=== PATIENT | female | born 1955 | race Hispanic/Latino ===

== ENCOUNTER 2020-07-06 19:53 | Emergency (ER) | payer BC ==
--- OUTSIDE RECORDS SUMMARY | 2020-07-06 19:59 | XMS REPORT | Continuity of Care Document ---
:1955 Author Organization [facility] [place] [facility] [employer] Care Team Providers Name Role Phone [facility] [employer] Unavailable Un available Problems Problem Status Onset Classification Date Comments Sourc e Date Reported BONE MARROW Active [facility] 9 [place] Pain in 01/18/2018 [facility] K aty right 8 shoulder M25.511 - Active [facility] Ka ty PAIN IN 8 RIGHT SHOULDER M19.90 - Active [facility] "UNSPECIFIED 5 Pérez OSTEOARTHRIT IS, UN Bursitis of 01/18/2018 [facility] Charlene right shoulder Medications Medication Details Route Status Patient Ordering Order Source Instructions Provider Date 8 HR Acetaminophen 1,300 mg = Active MH 650 MG Extended 2 tab, PO, 019 [place] and Release Tablet Q8H, 0 [Tylenol] Refill(s) calcium-vitamin D See Active 150 mg-100 units Instructio 019 [place] oral tablet ns, Take (1) tab by tucker daily, 0 Refill(s) clobetasol topical 1 appl, Active [facility] 0.05% cream TOP, BID, 019 [place] 0 Refill(s) Estrogens, 1 gm = 1 Active [facility] Conjugated ([facility]) appl, VAG, 019 [place] 0.625 MG/ML Bedtime, # Vaginal Cream 42.5 gm, 0 Refill(s) cyclobenzaprine 10 10 mg = 1 Active MH mg oral tablet tab, PO, 019 [place] Bedtime, PRN for spasms, # 30 tab, 0 Refill(s) Fish Oil oral = 1 cap, Active MH capsule PO, Q6H, # 019 [place] 100 cap, 0 Refill(s) Flax Seed Oil oral 1 tab, PO, Active MH capsule BID, 0 019 [place] Refill(s) Folic Acid 1 MG 1 mg = 1 Active MH Oral Tablet tab, PO, 019 [place] Daily, # 30 tab, 0 Refill(s) meloxicam 15 mg 15 mg = 1 Active oral tablet tab, PO, 019 [place] Daily, # 30 tab, 0 Refill(s) potassium 595 mg = 1 Active gluconate 595 mg tab, PO, 019 [place] oral tablet Daily, 0 Refill(s) pravastatin 40 mg 40 mg = 1 Active oral tablet tab, PO, 019 [place] Bedtime, # 30 tab, 0 Refill(s) prednisolone 5 MG 5 mg = 1 Active Oral Tablet tab, PO, 019 [place] Daily, 0 Refill(s) Allergies, Adverse Reactions, Alerts Substance Category Reaction Severity Reaction Status Date Comments S ource type Reported No Known Assertion Drug MH Medication allergy Mindy and Allergies Immunizations No Data Provided for This Section Results Order Name Results Value Reference Date Interpretation Comments Brittaney rce [facility] HEMATOLOGY WBC 2.8 3.7 - 10.4 2018 [place] HEMATOLOGY RBC 4.47 4.20 - 5.40 2018 [place] HEMATOLOGY Hgb 13.6 12.0 - 16.0 2018 [place] HEMATOLOGY Hct 40.0 36.0 - 48.0 2018 [place] HEMATOLOGY MCV 89.4 80.0 - 98.0 2018 [place] HEMATOLOGY MCH 30.5 27.0 - 31.0 2018 [place] HEMATOLOGY MCHC 34.1 32.0 - 36.0 2018 [place] HEMATOLOGY RDW 13.5 11.5 - 14.5 2018 [place] HEMATOLOGY Platelet 96 133 - 450 2018 [place] HEMATOLOGY MPV 11.4 7.4 - 10.4 2018 [place] HEMATOLOGY Neutrophils # 0.6 1.5 - 8.1 2018 [place] HEMATOLOGY Lymphocytes # 2.1 1.0 - 5.5 2018 [place] HEMATOLOGY Monocytes # 0.1 0.0 - 0.8 2018 [place] HEMATOLOGY Eosinophils # 0.0 0.0 - 0.5 2018 [place] HEMATOLOGY Segs 19.0 45.0 - 75.0 2018 [place] HEMATOLOGY Bands 1.0 0.0 - 11.0 2018 [place] HEMATOLOGY Lymphocytes 68.0 20.0 - 40.0 2018 [place] HEMATOLOGY Monocytes 3.0 2.0 - 12.0 2018 [place] HEMATOLOGY Eosinophils 1.0 0.0 - 4.0 2018 [place] HEMATOLOGY Atypical 8.0 <=0.0 % Lymphs 2018 [place] HEMATOLOGY RBC Morph Normal Normal (06/07/19 10:16 AM) 2018 [facility] HEMATOLOGY Tot Cell Ct 100 2018 [place] HEMATOLOGY Large Plt Slight 2018 [place] HEMATOLOGY Retic Auto 2.0 0.5 - 1.5 2018 [place] Pathology Reports No Data Provided for This Section Diagnostic Reports Report Value Date Source Bone Marrow Biopsy or PROCEDURE [facility]: [facility]: IR Diagnostic bone biopsies and aspiration s Exam date and time: 06/07/2019 10:44 AM Clinical history: 64 years old, female; Decrease d white blood cell count, unspecified; Additional info: /thrombocytopenia TECHNIQUE: Imaging protocol: Diagnostic bone biopsies and a spirations. The interpreting physician was present and supervised the procedu re. CT guidance was provided. CTDI volume: 23.11mGy DLP: 337.98 mGy-cm COMPARISON: No relevant prior studies available. FINDINGS: Consent: The procedure, risks, benefits and alternatives of the procedure were discussed. Informed consent was obtained. Timeou t was performed prior to the procedure. Level of Sedation: I supervised moderate sedatio n during this procedure. ?The patient was monitored by nurse using automated b lood pressure, EKG and pulse oximetry. ?The moderate sedation record is perma nently stored in the hospital information system. ?The personal supervised mod erate sedation time was 10 minutes. Medications administered:?2 mg of IV Ve rsed and 100 micrograms of IV Fentanyl. Sedation time: The personal supervised moderate sedation time was 10 minutes. Procedure summary: The patient was placed in the prone position . 1% lidocaine was used for local anesthesia. Using CT guidance, 11-gauge ne edle was advanced into the posterior left iliac bone. CT imaging confirmed proper positioning of the needle with the tip in the medullary bone. Appro ximately 1 cc of bone marrow was initially aspirated and given to pathology. The presence of spicules was confirmed. 9.0 cc of bone marrow was aspirated a nd given to pathology. 2.5 cm long core biopsy sample of b one marrow was obtained utilizing the guide needle. The core biopsy sample was placed in formalin co ntainer and appeared grossly adequate. Pressure was applied at the puncture s ite with adequate hemostasis. No evident complications and the patient had no complaints. CT imaging performed at this location utilizes r adiation dose optimization techniques which include one or more of the foll owing: -Automated exposure control. -Adjustment of the mA and/or kV according to pat ient size. -Use of iterative reconstruction technique. CT Radiation Dose DLP 337.98 mGy-cm IMPRESSION: Technically successful CT guided bone ma rrow biopsy. Final pathology report is pending. Du Serrano MD On 06/07/2019 11:22:39; VR-P [id number] Shoulder wo contrast Patient Name: GARTH GALINDO. 10/12/2017 [facility] MRI : 1955; Age: 62 years y/o; Female. MR: [id number]. Ordering Physician: Erick Palomo MD. MR RIGHT SHOULDER WITHOUT CONTRAST. INDICATION: Right shoulder pain. COMPARISON: None. TECHNIQUE: Multiplanar, mult isequence MR imaging of the right shoulder was performed using routine protocol without gadolinium contrast. FINDINGS: . Acromioclavicular joint: M oderate hypertrophic degenerative change of acromioclavicular joint noted. No subacromial spurring. . Rotator cuff: Varying degr ees of mild to moderate thickening and increased intrasubstance signal of subscapularis, infraspinatus and supraspinatus tendons noted compatible with tendinopathy with small partial-thickness undersurf cherelle to intrasubstance tear at the distal infraspinatus tendon at its footprint/greater tuberosity insertion. Teres minor tendon is normal in signal and morphology. No large partial full-thickness rotator cuff tear. . Biceps and Labrum: Long he ad of biceps tendon in anatomic position with an intact anchor. Labrum is intact. . Glenohumeral joint: No alexis nt effusion or loose bodies. Visualized glenohumeral ligaments intact. . Bones: No dislocation, sub luxation, fracture, or osteonecrosis. Marrow signal appropriate for age. . Other: Trace volume reactive subacromial/subde ltoid bursitis. IMPRESSION: 1. Subscapularis, infraspina tus and supraspinatus tendinopathy with small partial-thickness undersurface to intrasubstance tear at the distal infraspinatus tendon at its footprint/greater tuberosity ins ertion. No large partial full-thickness rotator cuff tear. 2. Trace volume reactive subacromial/subdeltoid bursitis. 3. Moderate hypertrophic degenerative change of AC joint. SL: [id number] Hand 3 views EXAM: XR BILATERAL HAND 4 VIEWS 05/25/2015 [facility] P[facility]rez Bilateral DX DATE: 2015-05-25 12:05:28 INDICATION: M19.90 Unspecified osteoarthritis, unspecified site COMPARISON: Bilateral hands 3 views 03/30/2012 at 1355 hours TECHNIQUE: PA, lateral, [place] and oblique ra diographs of both hands FINDINGS: No fracture, dislo cation or other acute bony abnormality is identified. No joint space narrowing, osteophyte, or erosions are seen. However, a left subarticular radial cyst and 2 small cysts i n the left capitate are seen , new since the 2011 study. Soft tissue swelling is seen over the metacarpophalangeal joints , left greater than right IMPRESSION: 1. Development of nonspecifi c subarticular cyst of the distal radius and 2 cysts in the left capitate. 2. Soft tissue swelling at the bilateral metacar pophalangeal joints. Consultation Notes No Data Provided for This Section Discharge Summaries No Data Provided for This Section History and Physicals No Data Provided for This Section Vital Signs Vital Sign Value Date Comments Source Height 166.37 cm 06/07/2019 [facility] Weight 83.182 06/07/2019 [facility] BMI Calculated 30.05 06/07/2019 [facility] Encounters Location Location Encounter Encounter Reason Attending ADM MD Stat Source Details Type Number For Provider Date Date Visit [facility] Outpt Diag [id number] Robert 05/25 05/26 [facility] [place] [facility]2014 Reji Ortez [facility] Outpt Diag [id number] Erick 10/12 10/13 [facility] [place] [facility]2017 [facility] [id number] Desi 06/07 06/08 [facility] Ortez [place] /2018 [facility] Procedures No Data Provided for This Section Assessment and Plan No Data Provided for This Section Plan of Care No Data Provided for This Section Social History Social History Date Source Social History TypeResponse 06/07/2019 [facility] Smoking Status Never smoker; Exposure to Tobacco Smoke None; Cigarette Smoking Last 365 Days No; Reg Smoking Cessation Counseling No entered on: 06/07/19 No data available for this 10/13/2017 [facility] section No data available for this 05/26/2015 [facility] Saab nn section Family History No Data Provided for This Section Advance Directives No Data Provided for This Section Functional Status No Data Provided for This Section
--- OUTSIDE RECORDS SUMMARY | 2020-07-06 20:00 | XMS REPORT | Continuity of Care Document ---
:1955 Author Organization [facility] t Address [address] [place] [address] Care Team Providers Name Role Phone Wse Florence MD Attending Clinician Doctor Unassigned, Name Attending Clinician Unavailable Phyllis Gallo Attending Clinician CATHY Attending Clinician Unavailable MARY Attending Clinician Unavailable KRISTI Attending Clinician Unavailable Eleonora Palomo Attending Clinician Teresita Spicer Attending Clinician Phyllis Gallo Admitting Clinician Problems Condition Condition Condition Status Onset Resolution Last Treating Co mments Source Name Details Category Date Date Treatment Clinician Date BONE Diagnosis Active 2018-072019-06-07 Mem oria MARROW 1-06 09:45:00 l BONE 00:00: [place] MARROW 00 Active 06/01/2019 [facility] M25.511 - Diagnosis Active 2017-10-15 Memoria PAIN IN -08 15:22:00 l RIGHT M25.511 00:01: Pérez SHOULDER - PAIN IN 00 RIGHT SHOULDER Active 10/01/2017 OPID Charlene M19.90 - Diagnosis Active 2014-072015-05-25 M emoria "UNSPECIFI 0-30 11:50:00 l ED M19.90 - 00:01: Brandon n OSTEOARTHR "UNSPECIFI 00 ITIS, UN ED OSTEOARTHR ITIS, UN Active 05/25/2015 MH PETER Ortez History of History of Problem Resolve Univers diabetes diabetes HL7.CCDAR2 d it y of mellitus mellitus [place] Physici ans History of History of Problem Resolve Univers Osteonecro Osteonecro HL7.CCDAR2 d [place] sis [place] Swelling Swelling Problem Active Unive rs of joint of joint HL7.CCDAR2 it y of of hand of hand [place] [facility] ans Chronic Chronic Problem Active Univers inflammato inflammato HL7.CCDAR2 ity of ry ry [place] arthritis arthritis Phys ici ans Encounter Encounter Problem Active Uni vers for for HL7.CCDAR2 it[place] of methotrexa [place]ot[place]xa [place] monitoring monitoring an s Vitamin D Vitamin D Problem Active Uni vers insufficie insufficie HL7.CCDAR2 ity of ncy ncy [place] [facility]ici ans Pain of Pain of Problem Active Univers right right HL7.CCDAR2 ity of shoulder shoulder [place] region region Physici ans Adhesive Adhesive Problem Active Unive rs capsulitis capsulitis HL7.CCDAR2 ity of of right of right [place] shoulder shoulder Physic i ans Sinusitis, Sinusitis, Problem Active U nivers acute acute HL7.CCDAR2 ity of [place] Physici ans History of History of Problem Active U nivers osteopenia osteopenia HL7.CCDAR2 ity of [place] Physici ans Incomplete Incomplete Problem Active U nivers rupture of rupture of HL7.CCDAR2 ity of right right [place] rotator rotator Physici cuff cuff ans Neutropeni Neutropeni Problem Active U nivers a a HL7.CCDAR2 ity of [place] Physici ans Bursitis Problem 2018-01-18 Mem oria of right 12:20:56 l shoulder Bursitis Herm stefan of right shoulder 01/18/2018 OPIAdriana Charlene Pain in Problem 2018-0 2018-01-18 2018-01-18 Memoria right 10-16 12:20:56 12:20:56 l shoulder Pain in 04:40: Katiana nn right 19 shoulder 8 01/18/2018 PETER Chang Allergies, Adverse Reactions, Alerts Allergy Allergy Status Severity Reaction(s) Onset Inactive Treating Comm ents Source Name Type Date Date Clinician No Known No Known Active Memori a Medicati Medicati l on on Pérez salgado s Social History Social Habit Start Date Stop Date Quantity Comments Source Social History 2015-05-26 2015-05-26 Francine mclean 04:59:00 04:59:00 Smoking Status Start Date Stop Date Source Social History [facility] Medications Ordered Filled Start Stop Current Ordering Indication Dosage Frequency Signature Comments Components Source Medication Medication Date Date Medication? Clinician (SIG) Name Name 8 HR 2018-07 Yes 1,300 mg = Memoria Acetaminoph 12 2 tab, PO, l en 650 MG 16:12: Q8H, 0 Brandon n Extended 00 Refill(s) Release Tablet [Tylenol] calcium-vit 2018-07 Yes See Memori a leon D 150 12 Instructio l mg-100 16:12: ns, Take Pérez units oral 00 (1) tab by tablet nouth daily, 0 Refill(s) clobetasol 2018-07 Yes 1 appl, Bill enedina topical 12 TOP, BID, l 0.05% cream 16:12: 0 Brandon n 00 Refill(s) Estrogens, 2018-07 Yes 1 gm = 1 Mem oria Conjugated 08-07 appl, VAG, l ([facility]) 0.625 16:12: Bedtime, # Pérez MG/ML 00 42.5 gm, 0 Vaginal Refill(s) Cream cyclobenzap 2018-07 Yes 10 mg = 1 M emoria rine 10 mg -12 tab, PO, l oral tablet 16:12: Bedtime, He rmann 00 PRN for spasms, # 30 tab, 0 Refill(s) Fish Oil 2018-07 Yes = 1 cap, Memor ia oral -12 PO, Q6H, # l capsule 16:12: 100 cap, 0 Herm stefan 00 Refill(s) Flax Seed 2018-07 Yes 1 tab, PO, Me moria Oil oral 1-12 BID, 0 l capsule 16:12: Refill(s) Katiana nn 00 Folic Acid 2018-07 Yes 1 mg = 1 Mem oria 1 MG Oral 1-12 tab, PO, l Tablet 16:12: Daily, # Pérez 00 30 tab, 0 Refill(s) meloxicam 2018-07 Yes 15 mg = 1 Mem oria 15 mg oral 1-12 tab, PO, l tablet 16:12: Daily, # Pérez 00 30 tab, 0 Refill(s) potassium 2018-07 Yes 595 mg = 1 Me moria gluconate -12 tab, PO, l 595 mg oral 16:12: Daily, 0 He rmann tablet 00 Refill(s) pravastatin 2018-07 Yes 40 mg = 1 M emoria 40 mg oral 1-12 tab, PO, l tablet 16:12: Bedtime, # Katiana nn 00 30 tab, 0 Refill(s) prednisolon 2018-07 Yes 5 mg = 1 Me moria e 5 MG Oral 1-12 tab, PO, l Tablet 16:12: Daily, 0 [place] 00 Refill(s) Cyclobenzap Cyclobenzap Yes LICO TAKE 1 Univers rine HCl - rine HCl - 9-12 CATHY TABLET AT ity of 10 MG Oral 10 MG Oral 14:19: M.D. BEDTIME [place] Tablet Tablet 17 Physici ans Azithromyci Azithromyci Yes LICO TAKE 2 Univers n 250 MG n 250 MG 1-02 CATHY TABLETS ON ity of Oral Tablet Oral Tablet 00:00: M.D. DAY 1 THEN TAKE 1 Physici TABLET A DAY FOR 4 DAYS. PredniSONE PredniSONE Yes LICO 1 QD TAKE 1 Univers 5 MG Oral 5 MG Oral 1-02 CATHY TABLET ity of Tablet Tablet 00:00: M.D. DAILY Physici ans Meloxicam Meloxicam 2011-07 Yes LICO 1 QD TAKE 1 Univers 15 MG Oral 15 MG Oral 2-07 CATHY TABLET ity of Tablet Tablet 00:00: M.D. DAILY Physici ans Methotrexat Methotrexat 2011-07 Yes LICO TAKE 8 Univers e 2.5 MG e 2.5 MG 0-26 CATHY TABLETS BY ity of Oral Tablet Oral Tablet 00:00: M.D. MOUTH PER WEEK Physici ans Folic Acid Folic Acid 2011-07 Yes LICO 1 QD TAKE 1 Univers 1 MG Oral 1 MG Oral 0-26 CATHY TABLET ity of Tablet Tablet 00:00: M.D. DAILY Physici ans MetFORMIN MetFORMIN Yes Q0.5D TAKE 1 Un justin HCl - 1000 HCl - 1000 TABLET i ty of MG Oral MG Oral TWICE [place] Tablet Tablet DAILY Physici ans Crestor 20 Crestor 20 Yes 1 QD TAKE 1 U nivers MG Oral MG Oral TABLET ity of Tablet Tablet DAILY. [place] [facility]ici ans Flax Oil Flax Oil Yes 2 QD TAKE 2 Unive rs Xtra CAPS Xtra CAPS CAPSULE it y of Daily [place] 1200mg Physici ans Escitalopra Escitalopra Yes QD TAKE 1/2 Univers m Oxalate m Oxalate TABLET ity of 20 MG Oral 20 MG Oral DAILY. [place] Tablet Tablet Physici ans Tanzeum 30 Tanzeum 30 Yes INJECT U nivers MG PEN MG PEN 30MG UNDER ity o f THE SKIN [place] ONCE A Physici WEEK. ans Potassium Potassium Yes 1 QD TAKE 1 Uni vers Gluconate Gluconate TABLET ity of TABS TABS DAILY [place] Physici ans Fish Oil Fish Oil Yes 2 QD TAKE 2 Unive rs CAPS CAPS CAPSULE ity of DAILY [place] Physici ans Calcium-Vit Calcium-Vit Yes 2 QD TAKE 2 Univers leon D3 leon D3 TABLET ity of TABS TABS DAILY [place] Physici ans Arthritis Arthritis Yes TAKE 1 Uni vers Pain Relief Pain Relief TABLET 3-4 ity of TBCR TBCR TIMES [place] DAILY. Physici ans Immunizations Ordered Filled Immunization Date Status Comments [facility] e Immunization Name Name Influenza 2015-05-25 Completed [facility] 10:57:00 [facility] [facility] ns Vital Signs Vital Name Observation Time Observation Value Comments Source Height 2019-06-[address] [facility] n 15:54:00 Weight 2019-06-07 [facility] n 15:54:00 BMI Calculated 2019-06-07 [facility] 15:54:00 BP Systolic 2018-06-22 111 mm[Hg] Location: [facility] 13:45:00 Position: [place] Physician s Sitting BP Diastolic 2018-06-22 72 mm[Hg] Location: [facility] 13:45:00 Position: [place] Physician s Sitting Height 2018-06-22 65 [in_us] [facility] 13:45:00 [place] Physician s Weight 2018-06-22 189.375 [lb_av] University o 13:45:00 [place] Physician s Body Mass Index 2018-06-22 31.51 kg/m2 [place] o Calculated 13:45:00 [place] Physician s Heart Rate 2018-06-22 69 /min [facility] 13:45:00 [place] Physician s BP Systolic 2018-03-23 118 mm[Hg] Location: [facility] 13:19:00 Position: [place] Physician s Sitting BP Diastolic 2018-03-23 73 mm[Hg] Location: [facility] 13:19:00 Position: [place] Physician s Sitting Weight 2018-03-23 188 [lb_av] [facility] 13:19:00 [place] Physician s Body Mass Index 2018-03-23 31.29 kg/m2 University o f Calculated 13:19:00 [place] Physician s Height 2018-03-23 65 [in_us] [facility] 13:19:00 [place] Physician s Heart Rate 2018-03-23 79 /min [facility] 13:19:00 [place] Physician s BP Systolic 2017-10-27 115 mm[Hg] Location: [facility] 10:36:00 Position: [place] Physician s Sitting BP Diastolic 2017-10-27 77 mm[Hg] Location: [facility] 10:36:00 Position: [place] Physician s Sitting Height 2017-10-27 65 [in_us] [facility] 10:36:00 [place] Physician s Weight 2017-10-27 180.125 [lb_av] University o 10:36:00 [place] Physician s Body Mass Index 2017-10-27 29.97 kg/m2 University o f Calculated 10:36:00 [place] Physician s Heart Rate 2017-10-27 69 /min [facility] 10:36:00 [place] Physician s BP Systolic 2017-07-28 126 mm[Hg] Location: [facility] 10:19:00 Position: [place] Physician s Sitting BP Diastolic 2017-07-28 74 mm[Hg] Location: [facility] 10:19:00 Position: [place] Physician s Sitting Height 2017-07-28 65 [in_us] [facility] 10:19:00 [place] Physician s Weight 2017-07-28 177 [lb_av] [facility] 10:19:00 [place] Physician s Body Mass Index 2017-07-28 29.45 kg/m2 University o Calculated 10:19:00 [place] Phys[facility] s Heart Rate 2017-07-28 74 /min [facility] 10:19:00 [place] Physician s Procedures Procedure Date / Time Performing Clinician Source Performed [QLH] CBC (INCLUDES 2018-01-28 00:00:00 [facility] DIFF/PLT) Physicians [QLH] CMP W/EGFR 2018-01-28 00:00:00 [facility] Physicians [QLH] SED RATE BY 2018-01-28 00:00:00 [facility] MODIFIED JULITA Physicians [QLH] C-REACTIVE PROTEIN 2018-01-28 00:00[facility]00 [facility] PATHOLOGIST REVIEW 2018-01-28 00:00:00 [facility] OF PERIPHERAL SMEAR Physicians [H] Immunofixation 2018-01-28 00:00[facility]00 [facility] [H] Immunofixation 2018-01-28 00:00:00 [facility] Eletrophoresis Urine Physicians [QLH] CBC (INCLUDES 2017-10-27 00:00:00 [facility] DIFF/PLT) Physicians [QLH] CMP W/EGFR 2017-10-27 00:00:00 [facility] Physicians [QLH] SED RATE BY 2017-10-27 00:00:00 [facility] MODIFIED WESTERGREN Physicians [QLH] C-REACTIVE PROTEIN 2017-10-27 00:00:00 [facility] Physicians [U] XRAY SHOULDER MIN 2 2017-08-10 00:00:00 [facility] VWS RIGHT [id number] Physicians [U] XRAY SCAPULA, 2017-08-10 00:00:00 [facility] COMPLETE RIGHT [id number] Physicians [QLH] CBC (INCLUDES 2017-07-28 00:00:00 [facility] DIFF/PLT) Physicians [QLH] CMP W/EGFR 2017-07-28 00:00:00 [facility] Physicians [QLH] SED RATE BY 2017-07-28 00:00:00 [facility] MODIFIED WESTERGREN Physicians [QLH] C-REACTIVE PROTEIN 2017-07-28 00:00:00 [facility] Physicians Encounters Start End Encounter Admission Attending Care Care Encounter Source Date/Time Date/Time Type Type Clinicians Facility Department ID 2020-06-04 2020-06-04 Telephone Sobia Florence [facility] [id number] 00:00:00 00:00:00 [place] [id number] [place] [id number] Professio [id number] [address] 2020-06-04 2020-06-04 Case Sobia Florence [facility] [id number] 00:00:00 00:00:00 Management Cam [place] [id number] [place] [id number] Professio [id number] [address] 2020-05-31 2020-05-31 Office Sobia Florence [facility] [id number] 14:57:12 15:49:19 Visit Wes Dominguez [id number] [place] [id number] [address]imirerum [id number] 2020-05-31 2020-05-31 Orders Doctor MIKE [id number] 00:00:00 00:00:00 Only Unassigned, JENI [id number] [place] [facility] [id number] 2019-06-07 2019-06-07 Outpatient Pant, MHPL MHPL [id number] 09:38:00 23:59:00 Desi 00 Phyllis 2019-06-07 2019-06-07 Outpatient MHBL MHBL [id number] MHBL 09:38:00 09:38:00 2018-06-22 2018-06-22 Appointjessica MORGAN [facility] [id number] Univers 13:30:00 13:30:00 t; Inés BARFIELD of [place], [place] Jus BARFIELD M.D. ans 2018-05-04 2018-05-04 [facility]essica [facility] [id number] Univers 09:00:00 09:00:00 t; Sherie BRADEN [place], [place] Yamilex BRADENAOsmar Physi ci ans 2018-04-06 2018-04-06 Appointjessica HERNANDEZ [facility] [id number] Univers 09:30:00 09:30:00 t; Sherie BRADEN [place], [place] SAMPSON P.AOsmar Physi ci ans 2018-03-23 2018-03-23 Appointjessica MORGAN [facility] [id number] Univers 13:00:00 13:00:00 t; Inés BARFIELD y of [place], [place] Jus BARFIELD M.D. ans 2018-03-09 2018-03-09 [address] [facility] UTP [id number] Univers 09:30:00 09:30:00 t; Sherie BRADEN [place], [place] SAMPSON PKelly Physi ci ans 2018-02-16 2018-02-16 Appointjessica LANREShayla [facility] [id number] Univers 09:15:00 09:15:00 t; Sherie BRADEN [place], [place] Sherie BRADEN Physi ci ans 2018-02-10 2018-02-10 Appointmen KRISTI [facility] [id number] Univers 10:00:00 10:00:00 t; ERICK PALOMO it y of Inés LAWSON M.D. Physici ans 2017-10-27 2017-10-27 [facility]ATH[facility] [id number] Univers 10:30:00 10:30:00 t; Inés BARFIELD of [place] MORGAN Physici M.D. ans 2017-10-27 2017-10-27 [facility] KRISTI [facility] [id number] Univers 08:50:00 08:50:00 t; ERICK PALOMO it y of [place]és [place] M.D. Physici ans 2017-10-12 2017-10-12 Outpatient YANN Palomo [id number] 18:15:00 23:59:00 Erick Crews 2017-10-01 2017-10-01 Appointjessica ALLYMARBELLA [facility] [id number] Univers 13:30:00 13:30:00 t; Sherie BRADEN [place], [place] Sherie BRADEN Physi ci ans 2017-09-09 2017-09-09 [facility] KRISTI [facility] [id number] Univers 15:00:00 15:00:00 t; ERICK PALOMO it y of [place] M.D. Physici ans 2017-08-10 2017-08-10 Appointjessica PALOMO [facility] [id number] Univers 13:30:00 13:30:00 t; ERICK PALOMO it y of Inés LAW[place] M.D. Physici ans 2017-07-28 2017-07-28 [facility] CATHY [facility] [id number] Univers 09:30:00 09:30:00 t; Inés BARFIELD it [place] Jus BARFIELD M.D. ans 2017-04-28 2017-04-28 [facility] CATHY, [facility] UTP [id number] Univers 09:30:00 09:30:00 t; Inés BARFIELD it y of [place], [place] Jus BARFIELD M.D. ans 2017-04-22 2017-04-22 [facility], [facility] UTP [id number] Univers 10:00:00 10:00:00 t; Inés BARFIELD it y of [place], [place] Jus BARFIELD M.D. ans 2017-01-22 2017-01-22 [facility], [facility] UTP [id number] Univers 11:00:00 11:00:00 t; Inés BARFIELD it y of [place], [place] Jus BARFIELD M.D. ans 2016-10-16 2016-10-16 [facility], [facility] UTP [id number] Univers 11:00:00 11:00:00 t; Inés BARFIELD it y of [place], [place] Jus BARFIELD M.D. ans 2016-09-30 2016-09-30 [facility], [facility] UTP [id number] Univers 13:30:00 13:30:00 t; Inés BARFIELD it y of CATHYYuliana PABLO Physici M.D. ans 2016-07-01 2016-07-01 [facility], [facility] UTP [id number] Univers 13:00:00 13:00:00 t; Inés BARFIELD it y of [place] Jus BARFIELD M.D. ans 2016-01-08 2016-01-08 [facility], [facility] UTP [id number] Univers 14:00:00 14:00:00 t; Inés BARFIELD it y of [place], [place] Jus BARFIELD M.D. ans 2015-09-25 2015[facility] [id number] Univers 14:00:00 14:00:00 t; Inés BARFIELD it y of [place], Jus Cassidy M.D. ans 2015-05-25 2015-05-25 Outpatient Nayan, [facility] [id number] 11:40:00 23:59:00 Robert Hines Results Test Description Test Time Test Comments Results Result Comments Source HEMATOLOGY 2019-06-07 2.8 [facility] Katiana nn 16:16:00 HEMATOLOGY 2019-06-07 4.47 [facility] [place] nn 16:16:00 HEMATOLOGY 2019-06-07 13.6 [facility] [place] nn 16:16:00 HEMATOLOGY 2019-06-07 40.0 [facility] [place] nn 16:16:00 HEMATOLOGY 2019-06-07 89.4 [facility] [place] nn 16:16:00 HEMATOLOGY 2019-06-07 16:16:00 Test Item Value Reference Range Interpretation Comme nts MCH (test code = MCH) 30.5 pg 27.0-31.0 Memorial [id number] 16:16:0034.1[facility] 2019-06-07 16:16:0013.5[facility] NrogaojGEMDCQVURG4294-88-91 16:16:0096[facility] VisyyesKUHCWZAVXB9762-53-23 16:16:0011.4[facility]orial XjqnvglFFAJSEIZNJ2691-34-16 16:16:000.6[facility] NygijmpBASPVXBWHL8995-54-77 16:16:002.1[facility] Pérez CLYTEFQSDB8853-91-10 16:16:000.1[facility]orial YwpqjrhLJNRSPAZSX4189-70-42 16:16:000.0 Memorial ZzxebyjVUUKCYEXKY1582-74-06 16:16:0019.0[facility]ann[facility]MATOLOGY 2019-06-07 16:16:001.0[facility] SgaatymFAKBHEHFTA6768-13-60 16:16:0068.0[facility]orial NrfviogFPGBGHTDKF3490-67-53 16:16:003.0[facility] SnmljoyMQGIRPBGTD7454-45-50 16:16:001.0[facility]orial GhwekwpJTFYZAAXIC1571-25-61 16:16:008.0[facility] [id number] 16:16:00Normal (06/07/19 10:16 AM)[facility] [place] [id number] 16:16:00 Test Item Value Reference Range Interpretation Comments Tot Cell Ct (test code = Tot Cell Ct) 100 1 [id number] 16:16:002.0[facility] [place][[facility]] Apsxbokmwsts3489-36-09 14:00:01 Test Item Value Reference Range Interpretation Comments Differential (test code Cancel Reason: Lab = Differential) Cancellation [facility]] CBC (INCLUDES DIFF/PLT)2018-03-23 14:00:01 Test Item Value Reference Range Interpretation Comments WBC; Below Low Threshold (test 2.7 {K/CMM} 3.7-10.4 code = 6690-2) RBC (test code = 789-8) 4.83 {M/CMM} 4.20-5.40 Hgb (test code = 718-7) 14.3 g/dl 12.0-16.0 Hct (test code = 72104-3) 43.2 % 36.0-48.0 MCV (test code = 787-2) 89.4 fL 80.0-98.0 MCH (test code = 785-6) 29.5 pg 27.0-31.0 MCHC (test code = 786-4) 33.0 g/dl 32.0-36.0 RDW (test code = 788-0) 14.0 % 11.5-14.5 Platelet; Below Low Threshold 124 {K/CMM} 133-450 (test code = 72466-9) Mean Platelet Volume; Above High 11.3 fL 7.4-10.4 Threshold (test code = 28476-5) [facility][] Manual [id number] 14:00:01 Test Item Value Reference Range Interpretation Comments Segmented Neutrophils (test code 54.0 % 45.0-75.0 = 01481-9) Bands (test code = 49336-0) 1.0 % 0.0-11.0 Lymphocytes (test code = 46317-3) 39.0 % 20.0-40.0 Atypical Lymphocytes; Above High 3.0 % <=0.0 Threshold (test code = 735-1) Monocytes (test code = 50356-8) 3.0 % 2.0-12.0 Segs-Bands # (test code = 1.5 {K/CMM} 1.5-8.1 05448-9) Lymphocytes # (test code = 1.1 {K/CMM} 1.0-5.5 43449-5) Monocytes # (test code = 68126-3) 0.1 {K/CMM} 0.0-0.8 RBC Morphology (test code = RBC Normal Morphology) Plt Morphology (test code = Plt Normal Morphology) [facility]] SED RATE BY MODIFIED [id number] 14:00:01 Test Item Value Reference Range Interpretation Comments Sedimentation Rate (test code = 1 {mm/hr} 0-20 67119-2) [facility]] C-REACTIVE [id number] 14:00:01 Test Item Value Reference Range Interpretation Comments CRP (test code = CRP) <2.9 <=2.9 [facility]] CMP [id number] 14:00:01 Test Item Value Reference Range Interpretation Comments Sodium Level 142 {mEq/l} 135-145 (test code = 2951-2) Potassium Level 4.3 {mEq/l} 3.5-5.1 (test code = 2823-3) Chloride Level 105 {mEq/l} 95-109 (test code = 5-0) Carbon Dioxide 26 {mEq/l} 24-32 (test code = 8-9) AGAP (test code = 15.3 {mEq/l} 10.0-20.0 44084-8) Glucose Lvl; 148 mg/dl 70-99 Adult reference range Above High values reflect the Threshold (test clinical diane delinesof the code = 2345-7) [employer]. Creatinine Lvl 0.70 mg/dl 0.50-1.40 (test code = 2160-0) Blood Urea 17 mg/dl 7-22 Nitrogen (test code = 3094-0) BUN/Creatinine 24 6-25 Ratio (test code = 3097-3) Total Protein 8.1 g/dl 6.4-8.4 (test code = 2885-2) Albumin Lvl (test 4.5 g/dl 3.5-5.0 code = 1751-7) Globulin (test 3.6 g/dl 2.7-4.2 code = 54348-1) A/G Ratio (test 1.2 0.7-1.6 code = 1759-0) Calcium Level 9.9 mg/dl 8.5-10.5 Total (test code = 81128-6) ALT (test code = 42 u/l 0-65 1743-4) AST (test code = 25 u/l 0-37 57918-7) Bili Total (test 0.4 mg/dl 0.2-1.3 code = 1975-2) Alk Phos (test 82 u/l 39-136 code = 1783-0) eGFR (test code = 93 The eGFR i s calculated 95766-5) {ML/MIN/1.7} using the CKD-E PI formula. In mos t young, healthyindividu als the eGFR will be >9 0 mL/min/1.73m2. The eGFR declines with a ge. AneGFR of 60-89 may be normal in some population s, particularly th e elderly, forwhom the CKD -EPI formula has not been extensively matti idated. Use of the eGFR isnot recommended in the following populations:Ind ividuals with unstable c reatinine concentrations, including patient s and those with seri ous co-morbid conditions.Carola ents with extremes in mus micaela mass or diet.The roma a above are obtained fr om the National Kidney Disease Education Progr am(NKDEP) which dorsy besty recommends that when the eGFR is used in patientswith ex tremes of body mass index for purposes of twan g dosing, the eGFR should be multiplied by t he estimated BMI. [facility][H] Immunofixation [id number] 14:00:01 Test Item Value Reference Interpretation Comments Range Immunofixation SEE NOTES Diffusely imm unoreactive Electrophoresis bands are no raina in the IgG, Pattern (test code = IgA, Ig M, kappa and Immunofixation lambdalanes. No monoclonal Electrophoresis bands are id entified. Pattern) [facility] Immunofixation SEE NOTES Serum immunof ixation Electrophoresis electrophore sis reveals a Interpretation (test polyclo nal pattern code = ofimmunoglobuli ns. No Immunofixation monoclonal pr oteins are Electrophoresis identified. Interpretation) Interpretati onperformed at [facility].Electr onic Signature Zoie Dobson MD 03/25/18 3:2 9 PM [facility][H] Immunofixation Eletrophoresis [id number] 14:00:01 Test Item Value Reference Interpretation Comments Range Urine No immunoreactive Immunofixation bands are Electrophoresis identified. Pattern (test code = Urine Immunofixation Electrophoresis Pattern) Urine SEE NOTES Urine immunofix ation Immunofixation electrophores is is Electrophoresis non-diagnost ic due to Interpretation a small amoun t (test code = Urine ofprotein in the Immunofixation specimen and the Electrophoresis resulting la ck of Interpretation) discernible bands on theelectrophore tic gel. Interpret ation performed at [place] [facility].Mirela ctronic Signatu re Adama Dobson MD 03/25/18 3:34 P M [facility][H] PATHOLOGIST REVIEW OF PERIPHERAL SMEAR 2018-03-23 14:00:01-Absolute leukopenia; occasional circulating atypical lymphocytes-Absolutethrombocytopenia, mildThe overall white blood cell count is slightly decreasedin number. The various white cell lineages are normal in absolute value(albeit in the lower range of normal). Occasional atypical circulatinglymphocytes are seen. No definitive blast forms are seen on review of theperipheral blood smear. Plateletsare mildly decreased in number, no plateletclumping is observed.Clinical correlation and follow-up/additional workuprecommended as clinically indicated/warranted.Electronic Signature Marin Lawson MD 03/25/18 1:15 PMUnBlue [facility][U] XRAY SHOULDER MIN 2 VWS RIGHT [id number] 08:38:00Images acquired, not reported on this accession number.[facility]] [id number] 10:19:01 Test Item Value Reference Range Interpretation Comments Differential (test code Cancel Reason: Lab = Differential) Cancellation [facility]] CBC (INCLUDES DIFF/PLT)2017-10-27 10:19:01 Test Item Value Reference Range Interpretation Comments WBC (test code = 6690-2) 4.1 {K/CMM} 3.7-10.4 RBC (test code = 789-8) 4.84 {M/CMM} 4.20-5.40 Hgb (test code = 718-7) 14.0 g/dl 12.0-16.0 Hct (test code = 85222-6) 42.5 % 36.0-48.0 MCV (test code = 787-2) 87.7 fL 80.0-98.0 MCH (test code = 785-6) 28.8 pg 27.0-31.0 MCHC (test code = 786-4) 32.9 g/dl 32.0-36.0 RDW; Above High Threshold (test 15.6 % 11.5-14.5 code = 788-0) Platelet; Below Low Threshold 102 {K/CMM} 133-450 (test code = 02232-2) Mean Platelet Volume; Above High 10.8 fL 7.4-10.4 Threshold (test code = 03257-2) [facility][] Manual [id number] 10:19:01 Test Item Value Reference Range Interpretation Comments Segmented Neutrophils; Below Low 33.0 % 45.0-75.0 Threshold (test code = 53482-9) Bands (test code = 13532-4) 0.0 % 0.0-11.0 Lymphocytes; Above High Threshold 53.0 % 20.0-40.0 (test code = 95644-9) Atypical Lymphocytes; Above High 10.0 % <=0.0 Threshold (test code = 735-1) Monocytes (test code = 73510-6) 4.0 % 2.0-12.0 Segs-Bands #; Below Low Threshold 1.4 {K/CMM} 1.5-8.1 (test code = 09941-7) Lymphocytes # (test code = 2.6 {K/CMM} 1.0-5.5 25004-3) Monocytes # (test code = 03692-7) 0.2 {K/CMM} 0.0-0.8 RBC Morphology (test code = RBC Normal Morphology) Plt Morphology (test code = Plt Normal Morphology) [facility]] C-REACTIVE [id number] 10:19:01 Test Item Value Reference Range Interpretation Comments CRP (test code = CRP) <2.9 <=2.9 [facility]] SED RATE BY MODIFIED [id number] 10:19:01 Test Item Value Reference Range Interpretation Comments Sedimentation Rate (test code = 2 {mm/hr} 0-20 95574-8) [facility]] CMP [id number] 10:19:01 Test Item Value Reference Range Interpretation Comments Sodium Level 144 {mEq/l} 135-145 (test code = 2951-2) Potassium Level 3.5 {mEq/l} 3.5-5.1 (test code = 2823-3) Chloride Level; 110 {mEq/l} 95-109 Above High Threshold (test code = 5-0) Carbon Dioxide; 22 {mEq/l} 24-32 Below Low Threshold (test code = 2027-9) AGAP (test code = 15.5 {mEq/l} 10.0-20.0 62692-0) Glucose Lvl (test 84 mg/dl 70-99 Adult refe rence range code = 2345-7) values reflec t the clinical guidel inesof the [place] Diabet es Association. Creatinine Lvl 0.60 mg/dl 0.50-1.40 (test code = 2160-0) Blood Urea 19 mg/dl 7-22 Nitrogen (test code = 3094-0) BUN/Creatinine 32 6-25 Ratio; Above High Threshold (test code = 3097-3) Total Protein 7.6 g/dl 6.4-8.4 (test code = 2885-2) Albumin Lvl (test 4.3 g/dl 3.5-5.0 code = 1751-7) Globulin (test 3.3 g/dl 2.7-4.2 code = 19249-2) A/G Ratio (test 1.3 0.7-1.6 code = 1759-0) Calcium Level 9.6 mg/dl 8.5-10.5 Total (test code = 65677-8) ALT (test code = 60 u/l 0-65 3-4) AST (test code = 32 u/l 0-37 83047-7) Bili Total (test 0.5 mg/dl 0.2-1.3 code = 1974-2) Alk Phos (test 63 u/l 39-136 code = 1783-0) eGFR (test code = 99 The eGFR i s calculated 31882-7) {ML/MIN/1.7} using the CKD-E PI formula. In mos t young, healthyindividu als the eGFR will be >9 0 mL/min/1.73m2. The eGFR declines with a ge. AneGFR of 60-89 may be normal in some population s, particularly th e elderly, forwhom the CKD -EPI formula has not been extensively matti idated. Use of the eGFR isnot recommended in the following populations:Ind ividuals with unstable c reatinine concentrations, including patient s and those with seri ous co-morbid conditions.Carola ents with extremes in mus micaela mass or diet.The roma a above are obtained fr om the National Kidney Disease Education Progr am(NKDEP) which dorys spivey recommends that when the eGFR is used in patientswith ex tremes of body mass index for purposes of twan g dosing, the eGFR should be multiplied by t he estimated BMI. [facility] Shoulder wo contrast [id number] 18:15:00 Patient Name: GARTH GALINDO.: 1955; Age: 62 years y/o; Female.MR: [id number].Ordering Physician: Erick Palomo MD.MR RIGHT SHOULDER WITHOUT CONTRAST.INDICATION: Right shoulder pain.COMPARISON: None.TECHNIQUE: Multiplanar, multisequence MR imaging of the right shoulder wasperformed using routine protocol without gadolinium contrast.FINDINGS:. Acromioclavicular joint: Moderate hypertrophic degenerative change ofacromioclavicular joint noted. No subacromial spurring.. Rotator cuff: Varying degrees of mild to moderate thickening and increasedintrasubstance signal of subscapularis, infraspinatus and supraspinatus tendonsnoted compatible with tendinopathy with small partial- thickness undersurface tointrasubstance tear at the distal infraspinatus tendon at its footprint/greatertuberosity insertion. Teres minor tendon is normal in signal and morphology. Nolarge partial full-thickness rotator cuff tear.. Biceps and Labrum: Long head of biceps tendon in anatomic position with anintact anchor. Labrum is intact.. Glenohumeral joint: No joint effusion or loose bodies. Visualizedglenohumeral ligaments intact.. Bones: No dislocation, subluxation, fracture, or osteonecrosis. Marrow signalappropriate for age.. Other: Trace volume reactive subacromial/subdeltoid bursitis.IMPRESSION:1. Subscapularis,infraspinatus and supraspinatus tendinopathy with smallpartial- thickness undersurface to intrasubstance tear at the distalinfraspinatus tendon at its footprint/greater tuberosity insertion. No largepartial full-thickness rotator cuff tear.2. Trace volume reactive subacromial/subdeltoid bursitis.3. Moderate hypertrophic degenerative change of AC joint.SL: [id number]--Misa by: Joshua Childers MDDictated Date/time: 10/13/17 08:36Electronically Signed by: Joshua Childers MD 10/14/1807:47FINAL REPORTUnBlue Mountain Hospital [facility]icians[U] XRAY SHOULDER MIN 2 VWS RIGHT [id number] 13:46:00 Images acquired, not reported on this accession number.[facility][U] XRAY SCAPULA, COMPLETE RIGHT [id number] 13:46:00Images acquired, not reported on this accession number.[facility] [H] CMP [id number] 10:03:01 Test Item Value Reference Range Interpretation Comments Sodium Level 145 {mEq/l} 135-145 (test code = Sodium Level) Potassium Level 3.7 {mEq/l} 3.5-5.1 (test code = Potassium Level) Chloride Level 110 {mEq/l} 95-109 (test code = Chloride Level) Carbon Dioxide 30 {mEq/l} 24-32 (test code = Carbon Dioxide) AGAP (test code = 8.7 {mEq/l} 10.0-20.0 AGAP) Glucose Lvl (test 120 mg/dl 70-99 Adult refe rence range code = Glucose values reflec t the Lvl) clinical guidel inesof the [place] Diabet es Association. Creatinine Lvl 0.70 mg/dl 0.50-1.40 (test code = Creatinine Lvl) Blood Urea 11 mg/dl 7-22 Nitrogen (test code = Blood Urea Nitrogen) BUN/Creatinine 16 6-25 Ratio (test code = BUN/Creatinine Ratio) Total Protein 7.3 g/dl 6.4-8.4 (test code = 44436-9) Albumin Lvl (test 3.9 g/dl 3.5-5.0 code = 1751-7) Globulin (test 3.4 g/dl 2.7-4.2 code = Globulin) A/G Ratio (test 1.1 0.7-1.6 code = A/G Ratio) Calcium Level 9.0 mg/dl 8.5-10.5 Total (test code = Calcium Level Total) ALT (test code = 35 u/l 0-65 1742-6) AST (test code = 24 u/l 0-37 1916-6) Alk Phos (test 73 u/l 39-136 code = 1783-0) Bili Total (test 0.5 mg/dl 0.2-1.3 code = 51339-9) eGFR (test code = 94 The eGFR i s calculated eGFR) {ML/MIN/1.7} using the CKD-E PI formula. In mos t young, healthyindividu als the eGFR will be >9 0 mL/min/1.73m2. The eGFR declines with a ge. AneGFR of 60-89 may be normal in some population s, particularly th e elderly, forwhom the CKD -EPI formula has not been extensively matti idated. Use of the eGFR isnot recommended in the following populations:Ind ividuals with unstable c reatinine concentrations, including patient s and those with seri ous co-morbid conditions.Carola ents with extremes in mus micaela mass or diet.The roma a above are obtained fr om the National Kidney Disease Education Progr am(NKDEP) which dorys spivey recommends that when the eGFR is used in patientswith ex tremes of body mass index for purposes of twan g dosing, the eGFR should be multiplied by t he estimated BMI. [facility]] C-REACTIVE [id number] 10:03:01 Test Item Value Reference Range Interpretation Comments CRP (test code = CRP) <2.9 <=2.9 [facility]] CBC (INCLUDES DIFF/PLT)2017-07-28 10:03:01 Test Item Value Reference Range Interpretation Comments WBC (test code = WBC) 8.1 {K/CMM} 3.7-10.4 RBC (test code = RBC) 5.04 {M/CMM} 4.20-5.40 Hgb (test code = 12169-0) 13.9 g/dl 12.0-16.0 Hct (test code = 4544-3) 41.8 % 36.0-48.0 MCV (test code = MCV) 82.9 fL 80.0-98.0 MCH (test code = MCH) 27.6 pg 27.0-31.0 MCHC (test code = MCHC) 33.3 g/dl 32.0-36.0 RDW (test code = RDW) 16.1 % 11.5-14.5 Platelet (test code = 777-3) 151 {K/CMM} 133-450 Mean Platelet Volume (test code 10.8 fL 7.4-10.4 = Mean Platelet Volume) [facility]] [id number] 10:03:01 Test Item Value Reference Range Interpretation Comments Segmented Neutrophils (test code 73.8 % 45.0-75.0 = 60442-3) Monocytes # (test code = 98769-3) 0.1 {K/CMM} 0.0-0.8 Lymphocytes (test code = 22.5 % 20.0-40.0 Lymphocytes) Eosinophils # (test code = 0.1 {K/CMM} 0.0-0.5 06887-4) Basophils # (test code = 38293-5) 0.1 {K/CMM} 0.0-0.2 Segs-Bands # (test code = 5.9 {K/CMM} 1.5-8.1 65964-6) Lymphocytes # (test code = 1.8 {K/CMM} 1.0-5.5 84925-4) RBC Morphology (test code = RBC Normal Morphology) Plt Morphology (test code = Plt Normal Morphology) [facility]] SED RATE BY MODIFIED [id number] 10:03:01 Test Item Value Reference Range Interpretation Comments Sedimentation Rate (test code = 3 {mm/hr} 0-20 Sedimentation Rate) [facility]
[2020-07-06 22:25] LABS: Protime INR 1.36
[2020-07-06 22:28] LABS: Absolute Lymphocytes (CBC) 2.8 K/uL (0.7-4.9); Basophils % 1.2 % (0-1.3); Hematocrit 38.5 % (36.0-45.0); Lymphocytes % 7.5 % (15.3-44.8); MPV 9.8 fL (7.6-11.3); RBC Red Blood Cell Count 4.85 M/uL (3.86-4.86)
[2020-07-06 22:33] LABS: Albumin 3.8 g/dL (3.4-5.0); Bilirubin Total 0.5 mg/dL (0.2-1.0); Potassium 3.8 mmol/L (3.5-5.1); Protein, Total 8.8 g/dL (6.4-8.2)
[2020-07-06] MEDS ORDERED: ASPIRIN 81 MG CHEWABLE TABLET ONE (22:41)
[2020-07-06 23:32] LABS: Blood Morphology Comment NOT SEEN (NOT SEEN); Platelet Estimate ADEQ; Platelets, Giant SEEN
[2020-07-06] MEDS ORDERED: MORPHINE 4 MG/ML SYR ONE (23:45)
[2020-07-06] MEDS ORDERED: ONDANSETRON 4 MG/2 ML VIAL ONE (23:45)
--- NOTE | 2020-07-07 00:28 | EDPHYS ---
Physician Documentation [facility] Name: Richa Durham Age: 65 yrs Sex: Female : 1955 Arrival Date: 07/06/2020 Time: 19:55 Bed 14 Private MD: Naman Waterman T ED Physician Omega Rascon HPI: 07/06 22:08 This 65 yrs old Female presents to ER via Ambulatory with complaints of Leg jmm Swelling - left thigh. 22:08 The patient presents with swelling. Onset: The symptoms/episode began/occurred jmm gradually, 4 day(s) ago. Modifying factors: The symptoms are alleviated by nothing. the symptoms are aggravated by nothing. Associated signs and symptoms: Pertinent positives: swelling, Pertinent negatives fever. This is a 65 year old female with a history of leukemia that presents to the ED with complaints of left leg swelling beginning this past Thursday. Denies fever, shortness of breath, or chest pain. . Historical: - Allergies: 20:32 No Known Allergies; dm5 - Immunization history:: Adult Immunizations up to date. - Social history:: Smoking status: Patient denies any tobacco usage or history of. ROS: 22:08 Constitutional: Negative for fever, chills, and weight loss, Cardiovascular: Negative jmm for chest pain, palpitations, and edema, Respiratory: Negative for shortness of breath, cough, wheezing, and pleuritic chest pain. 22:08 MS/extremity: Positive for swelling. 22:08 All other systems are negative. Exam: 22:08 Constitutional: This is a well developed, well nourished patient who is awake, alert, jmm and in no acute distress. Head/Face: atraumatic. Eyes: EOMI, no conjunctival erythema appreciated ENT: Moist Mucus Membranes Neck: Trachea midline, Supple Chest/axilla: Normal chest wall appearance and motion. Cardiovascular: Regular rate and rhythm. No edema appreciated Respiratory: Normal respirations, no respiratory distress appreciated Abdomen/GI: Non distended, soft Back: Normal ROM Skin: General appearance color normal 22:08 Musculoskeletal/extremity: swelling noted to the left lower leg, full dorsalis pulse, compartments are soft, NVI. 22:08 Skin: Appearance: Color: normal in color. 22:08 Neuro: Orientation: is normal, Mentation: is normal, Memory: is normal. 22:08 Psych: Behavior/mood is pleasant, cooperative. Vital Signs: 20:29 BP 134 / 75; Pulse 107; Resp 20; Temp 97.9(TE); Pulse Ox 98% on R/A; Weight 83.91 kg; dm5 Height 5 ft. 6 in. (167.64 cm); Pain 5/10; 22:10 BP 129 / 70; Pulse 70; Resp 18; Pulse Ox 98% on R/A; ea 20:29 Body Mass Index 29.86 (83.91 kg, 167.64 cm) dm5 MDM: 21:41 Patient medically screened. [facility] 07/07 00:26 Data reviewed: vital signs, nurses notes. Counseling: I had a detailed discussion with [facility] the patient and/or guardian regarding: the historical points, exam findings, and any diagnostic results supporting the discharge/admit diagnosis, lab results, radiology results, the need for outpatient follow up, to return to the emergency department if symptoms worsen or persist or if there are any questions or concerns that arise at home. ED course: Pain is mainly localized to the left medial thigh. Swelling may be due to muscular injury. US negative. Patient has full dorsalis pulse. NVI. FROM of the knew without pain. Patient is afebrile. I do not suspect an infectious process. Advised to follow up with ortho for reevaluation and otherwise given strict return precautions. Patient understood and agrees with the plan of care. . 07/06 21:46 Order name: CBC with Diff [facility] 07/06 21:46 Order name: CMP; Complete Time: 22:36 [facility] 07/06 21:27 Order name: US Extremity Venous Unilateral Ltd [facility] 07/06 21:46 Order name: PT-INR; Complete Time: 22:27 [facility] 07/06 23:07 Order name: Manual Differential [facility] 07/07 00:36 Order name: COVID-19 [facility] Administered Medications: 07/06 23:35 Drug: Zofran (Ondansetron) 4 mg Route: IVP; Site: right antecubital; ea 07/07 00:00 Follow up: Response: No adverse reaction sg 07/06 23:36 Drug: morphine 4 mg Route: IVP; Site: right antecubital; ea 07/07 00:00 Follow up: Response: No adverse reaction; Pain is decreased sg Disposition: 21:49 Co-signature as Attending Physician, Omega Rascon MD I agree with the assessment and tw4 plan of care. Disposition: 07/07/20 00:28 Discharged to Home. Impression: Edema, unspecified. - Condition is Stable. - Discharge Instructions: Peripheral Edema. - Prescriptions for Ultracet 37.5- 325 mg Oral Tablet - take 1 tablet by ORAL route every 6 hours - for up to 5 days; do not exceed 8 tablets per day.; 20 tablet. - Medication Reconciliation Form, Thank You Letter, Antibiotic Education, Prescription Opioid Use form. - Follow up: Sher Juarez MD; When: 2 - 3 days; Reason: Recheck today's complaints, Continuance of care, Re-evaluation by your physician. Signatures: Dispatcher [employer] EDLarisa Barajas, RN RN dm5 Karlo Morel PA PA jmm Attema, Lee, FACE BOSS-C FACE BOSS-Cla1 Glenny Mckinley RN Omega Lorenzana ea, MD MD tw4 Fortino Justice RN Corrections: (The following items were deleted from the chart) 00:44 00:28 07/07/2020 00:28 Discharged to Home. Impression: Edema, unspecified. Condition is ea Stable. Forms are Medication Reconciliation Form, Thank You Letter, Antibiotic Education, Prescription Opioid Use. Follow up: Dr. Sher Juarez; When: 2 - 3 days; Reason: Recheck today's complaints, Continuance of care, Re-evaluation by your physician. cally
--- NOTE | 2020-07-07 00:28 | ER ---
Nurse's Notes [facility] Name: Richa Durham Age: 65 yrs Sex: Female : 1955 Arrival Date: 07/06/2020 Time: 19:55 Bed 14 Private MD: Naman Waterman T Diagnosis: Edema, unspecified Presentation: 07/06 20:29 Chief complaint: Patient states: felt a sharp pain in left thigh Thursday, swelling dm5 started Thursday. No known injury, swelling noted to left thigh and knee. Pt placed in wheelchair and instructed to stay in the wheelchair while in the lobby. Coronavirus screen: Client denies travel out of the [place] in the last 14 days. At this time, the client does not indicate any symptoms associated with coronavirus-19. Ebola Screen: Patient negative for fever greater than or equal to 101.5 degrees Fahrenheit, and additional compatible Ebola Virus Disease symptoms Patient denies exposure to infectious person. Patient denies travel to an Ebola-affected area in the 21 days before illness onset. No symptoms or risks identified at this time. Initial Sepsis Screen: Does the patient meet any 2 criteria? HR > 90 bpm. No. Patient's initial sepsis screen is negative. Does the patient have a suspected source of infection? No. Patient's initial sepsis screen is negative. Risk Assessment: Do you want to hurt yourself or someone else? Patient reports no desire to harm self or others. Onset of symptoms was July 03, 2020. 20:29 Method Of Arrival: Ambulatory dm5 20:29 Acuity: JARROD 3 dm5 Historical: - Allergies: 20:32 No Known Allergies; dm5 - Immunization history:: Adult Immunizations up to date. - Social history:: Smoking status: Patient denies any tobacco usage or history of. Screenin:54 Abuse screen: Denies threats or abuse. Nutritional screening: No deficits noted. ea Tuberculosis screening: No symptoms or risk factors identified. Fall Risk None identified. Assessment: 22:09 General: Appears in no apparent distress. Behavior is appropriate for age. Pain: ea Complains of pain in left leg. Neuro: Level of Consciousness is awake, alert, obeys commands, Oriented to person, place, time, situation. Cardiovascular: edema noted to left lower extremity . Respiratory: Airway is patent Respiratory effort is even, unlabored, Respiratory pattern is regular, symmetrical. Derm: Skin is pink, warm \T\ dry. Bruising that is dark purple, on left quadriceps. Vital Signs: 20:29 BP 134 / 75; Pulse 107; Resp 20; Temp 97.9(TE); Pulse Ox 98% on R/A; Weight 83.91 kg; dm5 Height 5 ft. 6 in. (167.64 cm); Pain 5/10; 22:10 BP 129 / 70; Pulse 70; Resp 18; Pulse Ox 98% on R/A; ea 20:29 Body Mass Index 29.86 (83.91 kg, 167.64 cm) dm5 ED Course: 19:55 Patient arrived in ED. am2 19:55 Naman Waterman MD is Private Physician. am2 20:31 Triage completed. dm5 21:13 Karlo Morel PA is PHCP. jmm 21:13 Omega Rascon MD is Attending Physician. jmm 21:41 Glenny Mckinley, MIGNON is Primary Nurse. ea 21:54 Patient has correct armband on for positive identification. Placed in gown. Bed in low ea position. Call light in reach. 21:54 Arm band placed on right wrist. Patient placed in an exam room, on a stretcher, on ea pulse oximetry. 22:06 Inserted saline lock: 20 gauge in right antecubital area, using aseptic technique. ea Blood collected. 23:34 Notified Nurse Practitioner and/or Physician Operations Representative of a critical lab result(s), ea bands 10%. 07/07 00:17 US Extremity Venous Unilateral Ltd In Process Unspecified. EDMS 00:27 Sher Juarez MD is Referral Physician. jmm 00:43 No provider procedures requiring assistance completed. IV discontinued, intact, ea bleeding controlled, No redness/swelling at site. Pressure dressing applied. Administered Medications: 07/06 23:35 Drug: Zofran (Ondansetron) 4 mg Route: IVP; Site: right antecubital; ea 07/07 00:00 Follow up: Response: No adverse reaction sg 07/06 23:36 Drug: morphine 4 mg Route: IVP; Site: right antecubital; ea 07/07 00:00 Follow up: Response: No adverse reaction; Pain is decreased sg Outcome: 00:28 Discharge ordered by . jmm 00:43 Discharged to home ambulatory, with family. juan 00:43 Condition: stable 00:43 Discharge instructions given to patient, family, Instructed on discharge instructions, follow up and referral plans. medication usage, Demonstrated understanding of instructions, follow-up care, medications, Prescriptions given X 1. 00:44 Patient left the ED. juan Addendum: 07/09/2020 14:14 Addendum: COVID-19 Result: Negative result given to RN to notify pt. Notified pt of i w negative COVID 19 swab results. Pt advised that even with a negative test result they should remain in isolation until symptom free for 3 days without medication. Pt also advised to return to the ED for worsening symptoms. Signatures: Dispatcher [employer] Larisa Del Angel, RN Fortino Medina RN Karlo Barry PA PA jmm Williams, Irene, RN RN iw Moreno, Amanda am2 Antunez, Elena, RN RN ea Corrections: (The following items were deleted from the chart) 07/07 00:52 00:48 Sling applied to right arm. juarez pizarro
--- NOTE | 2020-07-07 08:58 | RAD REPORT ---
EXAM DESCRIPTION: USExtremity Venous Uni Ltd07/07/2020 12:11 am CLINICAL HISTORY: left leg swelling. COMPARISON: 2014 FINDINGS: Left common femoral, superficial femoral, popliteal and posterior tibial veins are compre ssible and demonstrate augmentation. Doppler demonstrates good flow. IMPRESSION: No evidence of deep venous thrombosis involving the left lower extremity.
[2020-07-11 11:44] VITALS: TEMP 97.9; O2SAT 98
[2020-07-11 11:45] VITALS: BP 129/70
== END 2020-07-07 00:44 | disposition home or self-care (01) ==
LOC: ER 19:53
DX: R60.9 Edema, unspecified (principal); Z20.828 Contact with and (suspected) exposure to other viral communicable diseases
CPT/HCPCS: 85025; 36415; 85610; 80053; 93971; 96375; 96374; 99284; U0002; J2405